=== PATIENT | female | born 1985 | race Caucasian/White ===

== ENCOUNTER 2021-03-26 21:47 | Inpatient (IN) | payer BC ==
[~2021-03-26] VITALS: Ht 172.7 cm; Wt 85.0 kg
--- NOTE | 2021-03-26 22:00 | NUR ---
Debra Royal SOCIAL SERVICES COORDINATOR, and Nsy notified of G4 L2 previous C/S x1, x1 AT 39 + wks gestation presenting @ 7cm/100/-1, requesting epidural.
--- NOTE | 2021-03-26 22:15 | NUR ---
Debra BIOMEDICAL SERVICE ENGINEER into room for epidural placement, pt moved to sit on edge of bed. Pt tense with advanced labors, breathing well with contractions. attentive at bedside. See Anesthesia record for epidural placement information.
[2021-03-26 22:21] LABS: BASO % 0.4 % (0.0-2.0); EOS # 0.1 (0.0-0.7); EOS % 1.2 % (0-4.0); GRAN # 7.4 (1.4-6.5); GRAN % 64.8 % (42.2-75.2); HEMATOCRIT 37.8 % (37.0-47.0); HEMOGLOBIN 13.4 g/dl (12.5-16.0); LYMPH # 2.7 (1.2-3.4); LYMPH % 23.6 % (20.0-51.0); MEAN CELL VOLUME 90 fl (80.0-100.0); MEAN CORPUSCULAR HEMOGLOBIN 32 pg (27.0-31.0); MEAN CORPUSCULAR HGB CONC 35 g/dl (33.0-37.0); MEAN PLATELET VOLUME 10.2 fl (7.4-10.4); MONO # 1.1 (0.1-0.6); MONO % 9.6 % (1.7-9.3); PLATELET COUNT 256 K/mm3 (130-400); RED BLOOD COUNT 4.21 M/mm3 (4.10-5.30); REDCELL DISTRIBUTION WIDTH-CV 12.9 % (11.5-14.5)
--- NOTE | 2021-03-26 22:22 | NUR ---
PT SITTING UP AT BEDSIDE FOR EPIDURAL PLACEMENT. TRACING MATERNAL HR.
[2021-03-26 22:30] VITALS: BP 144/86; PULSE 76
[2021-03-26 22:45] VITALS: BP 143/69; PULSE 100
--- NOTE | 2021-03-26 22:45 | NUR ---
Pt assisted to SF, legs numb, unable to assist. Pt reports headache. LR @ bolusrate. See anesthesia record.
[2021-03-26 23:00] VITALS: BP 139/74; PULSE 87
[2021-03-26] MEDS ORDERED: FLONASEALLERGY NS (23:00)
[2021-03-26] MEDS ORDERED: ZYRTEC5 MG PO (23:00)
[2021-03-26 23:15] VITALS: BP 127/75; PULSE 96
[2021-03-26 23:45] VITALS: BP 115/89; PULSE 114
--- NOTE | 2021-03-26 23:50 | NUR ---
Dr George insto room, [facility] wi clear fluid. PT set up and prepped for delivery. Pt feels contractions and pressure, unable to move legs. [address] female infant [address] Dr George.
--- NOTE | 2021-03-26 23:55 | NUR ---
Straight cath by Dr George with return scant amount urine
[2021-03-27] VITALS (12 sets, daily range): BP systolic 108–146; BP diastolic 63–98; PULSE 65–114; TEMP 97.5–99
--- NOTE | 2021-03-27 00:03 | NUR ---
Placenta delivers spont and intact with 3 vessell cord. 30unit Pitocin in 500ccLR piggybacked to mainline IV site and started at bolus rate.
--- NOTE | 2021-03-27 00:08 | NUR ---
Straight cath by Dr George with small amount clear urine
--- NOTE | 2021-03-27 00:10 | NUR ---
perineal repair complete, ice pack to perineum, bed together,
--- NOTE | 2021-03-27 00:22 | NUR ---
THIS NURSE ASSISTED KAL OLGUIN WITH BLOOD PATCH FOLLOWING DELIVERY. PT TOLERATED WELL. Antonio MARTÍNEZ CRNA REMOVED EPIDURAL CATHETER FOLLOWING BLOOD PATCH. SEE ANESTHESIA RECORDS.
--- NOTE | 2021-03-27 02:00 | NUR ---
Pt reports "I can move my feet a little"
--- NOTE | 2021-03-27 03:00 | NUR ---
Pt reports "I need ssomething stronger for the pain. I feel like I'm having contractions again" Fundus @ u firm, lochia moderate wtihout clots. Pt able to move legs and lift hips from bed. Tylenol 1000 mg with 5 mg Roxicodone give po. IV to INT and ambulates to bathroom with standby eulalio t of 2, steady gait. Voids large amount, reports "I feel better already. I think that's what was causing my pain." Performs own pericare. Ambulates to post aprtum room with steady gait.
[2021-03-27] MEDS ORDERED: IBU800 M1 PO (08:25)
[2021-03-28 02:00] VITALS: BP 126/63; PULSE 70; TEMP 98
[2021-03-28 07:10] VITALS: BP 122/55; PULSE 72; TEMP 97.6
--- NOTE | 2021-03-28 09:30 | NUR ---
Initial visit; Patient thanked Handkerchief Sample Clerk for offering congratulations and God's blessings for the of her daughter. Handkerchief Sample Clerk thanked mom for choosing [facility].
== END 2021-03-28 11:25 | disposition home or self-care (01) | DRG 807 ==
LOC: EDBD 21:47 → LDR 21:47 → LDRO 21:47 → LDR 22:09 → LDRO 22:20 → LDR 22:22 → OB 03-27 03:30
PROVIDERS: Obstetrics & Gynecology; ADMIT Obstetrics & Gynecology
PROC: 10E0XZZ Delivery of Products of Conception, External Approach (ICD-10-PCS; principal; 2021-03-27)
PROC: 0KQM0ZZ Repair Perineum Muscle, Open Approach (ICD-10-PCS; 2021-03-27)
DX: O48.0 Post-term pregnancy (principal); Z37.0 Single live birth; O70.1 Second degree perineal laceration during delivery; Z3A.40 40 weeks gestation of pregnancy
CPT/HCPCS: J2590; J2795; J7120